=== PATIENT | male | born 1970 | race Caucasian/White ===

== ENCOUNTER 2020-12-27 14:23 | Emergency (ER) | payer OTHER ==
[~2020-12-27] VITALS: Ht 188 cm; Wt 91.6 kg
[2020-12-27 14:35] VITALS: BP_SYST 125
[2020-12-27] MEDS ORDERED: ORPH100T2 PO (18:43)
[2020-12-27] MEDS ORDERED: KETOROLAC TROMETHAMINE 30 MG VIAL IM ONE (18:45)
[2020-12-27] MEDS ORDERED: KETOROLAC TROMETHAMINE 30 MG VIAL ONE (18:51)
[2020-12-27 18:54] VITALS: BP_SYST 122
== END 2020-12-27 18:54 | disposition home or self-care (01) ==
LOC: SED 14:23
DX: M54.9 Dorsalgia, unspecified (principal); I10 Essential (primary) hypertension; Z79.899 Other long term (current) drug therapy
CPT/HCPCS: 81002; 96372; 99283; J1885